=== PATIENT | male | born 1990 | race Caucasian/White ===

== ENCOUNTER 2020-04-20 18:08 | Emergency (ER) | payer MEDICAID ==
[~2020-04-20] VITALS: Ht 167.6 cm; Wt 65.8 kg
[2020-04-20 18:13] VITALS: BP_SYST 116
--- NOTE | 2020-04-20 18:20 | NUR ---
DEL AND PLACED IN [facility].
--- NOTE | 2020-04-20 18:22 | NUR ---
Patient arrived in the ED c/o Left groin pain that started a month ago, got injured in that area. Denied any chest pain or shortness of breath. Denied any fevers, chills, nausea or vomiting. Patient is alert and oriented x4, respirations even and unlabored, speaking in full sentences, and ambulating with a steady gait. VSS, pain level 7/10. Informed of the approximate wait time. Instructed to notify ED staff for any changes in condition or worsening of symptoms while waiting to be seen by an ED provider. Patient verbalized understanding.
--- NOTE | 2020-04-20 18:33 | NUR ---
TIMUR Doshi at bedside examining patient.
--- NOTE | 2020-04-20 18:45 | NUR ---
Patient to ER bed 1 to gown for evaluation. Side rails up. Report given to ISMA REIS.
[2020-04-20] MEDS ORDERED: KETOROLAC TROMETHAMINE 15 MG VIAL IVP ONE (19:00)
--- NOTE | 2020-04-20 19:08 | NUR ---
Report given and care transferred to SMILEY Adame.
--- NOTE | 2020-04-20 19:08 | NUR ---
received report from SMILEY Reddy for continuation of care.
--- NOTE | 2020-04-20 19:08 | NUR ---
lab at bedside for blood draw.
--- NOTE | 2020-04-20 19:14 | NUR ---
patient refused IV and CT with IV contrast. MD aware. MD will order CT w/o contrast and oral pain medication.
[2020-04-20 19:20] LABS: BILIRUBIN,URINE NEGATIVE (NEGATIVE); BLOOD, URINE NEGATIVE (NEGATIVE); CLARITY/URINE CLEAR (CLEAR); COLOR,URINE YELLOW (YELLOW); GLUCOSE,URINE NEGATIVE (NEGATIVE); KETONES,URINE NEGATIVE (NEGATIVE); LEUKOCYTE ESTERASE ,URINE NEGATIVE (NEGATIVE); NITRITE, URINE NEGATIVE (NEGATIVE); PROTEIN URINE NEGATIVE (NEGATIVE); UROBILINOGEN,URINE 0.2 (0.2-1.0)
[2020-04-20 19:25] LABS: BASOPHILS # (AUTO) 0.1 K/uL (0.0-0.2); BASOPHILS % (AUTO) 0.7 % (0.0-2.0); EOSINOPHILS # (AUTO) 0.1 K/uL (0.0-0.4); EOSINOPHILS % (AUTO) 1.1 % (0.0-4.0); HEMATOCRIT 40.7 % (36-54); LYMPHOCYTES # (AUTO) 2.8 K/uL (1.0-5.5); LYMPHOCYTES % (AUTO) 26.8 % (20.5-51.5); MEAN CORPUSCULAR HEMOGLOBIN 31 pg (27-31); MEAN CORPUSCULAR HGB CONC 34 % (32-36); MEAN CORPUSCULAR VOLUME 90 fL (79.0-98.0); MONOCYTES # (AUTO) 1.1 K/uL (0.0-1.0); MONOCYTES % (AUTO) 10.4 % (1.7-9.3); NEUTROPHILS # (AUTO) 6.4 K/uL (1.8-7.7); PLATELET COUNT (AUTO) 230 K/uL (130-430); RED BLOOD CELL COUNT(AUTO) 4.51 MIL/uL (4.2-6.2); RED CELL DISTRIBUTION WIDTH 12.7 % (9.0-15.0); WHITE BLOOD COUNT (AUTO) 10.5 K/uL (4.8-10.8)
[2020-04-20 19:44] LABS: CALCIUM 8.7 mg/dL (8.4-11.0); CREATININE 0.77 mg/dL (0.55-1.30); POTASSIUM 3.6 mmol/L (3.5-5.1)
--- NOTE | 2020-04-20 19:48 | NUR ---
Patient transported to radiology via wheelchair, accompanied by staff.
[2020-04-20 19:50] LABS: ALBUMIN 4.2 g/dL (3.4-4.8); TOTAL BILIRUBIN 0.2 mg/dL (0.0-1.0)
--- NOTE | 2020-04-20 20:00 | NUR ---
patient returned from CT in stable condition.
--- NOTE | 2020-04-20 20:00 | NUR ---
patient taken to ultrasound with tech.
--- NOTE | 2020-04-20 20:12 | NUR ---
patient returned from ultrasound in stable condition.
--- NOTE | 2020-04-20 20:51 | NUR ---
Dr. Doshi at bedside discussing results with patient.
[2020-04-20 20:56] VITALS: BP_SYST 135
--- NOTE | 2020-04-20 20:56 | NUR ---
Patient given written and verbal discharge instructions and verbalizes understanding. ER MD discussed with patient the results and treatment provided. Patient in stable condition. ID arm band removed. NO Rx given. Patient educated on pain management and to follow up with PMD. Pain Scale 0/10. Opportunity for questions provided and answered. Medication side effect fact sheet provided.
== END 2020-04-20 21:04 | disposition home or self-care (01) ==
LOC: SED 18:08
DX: S39.011A Strain of muscle, fascia and tendon of abdomen, initial encounter (principal); M54.32 Sciatica, left side
CPT/HCPCS: 36415; 76376; 80053; 81003; 83690-TC; 85025; 93971; 99285